=== PATIENT | male | born 1950 | race Caucasian/White ===

== ENCOUNTER → 2023-09-26 | Outpatient (CLI) | payer MEDICARE, SELFPAY ==
--- NOTE | 2023-09-26 08:46 | NEURO ---
NCS and/or EMG Patient Report Ordering Doctor: RANDA VALVERDE DATE OF SERVICE: 09/26/23 Clinical Summary: 73 year old male patient presenting with symptoms of numbness and tingling in both hands. Nerve Conduction Studies Summary: The right median-D2 SNAP distal latency was prolonged. The right ulnar-D5 SNAP distal latency was prolonged. The left median motor conduction velocity was reduced in the forearm segment. Needle Examination Summary: Needle examination demonstrated increased insertional activity and spontaneous activity (positive sharp waves) in the left biceps and triceps muscles. There was a higher proportion of motor unit action potentials with reduced recruitment, increased amplitude, increased duration, and polyphasia in the right deltoid, right biceps, bilateral triceps, and bilateral flexor carpi radialis muscles. Impression: There is electrodiagnostic evidence of the following - 1) Mild, right median mononeuropathy at the wrist (carpal tunnel syndrome), with sensory fiber demyelination 2) Subacute to chronic, right C5/C6 to C7 radiculopathy with active denervation 3) Chronic, left C7 radiculopathy Multi Select Codes Neurology Neurology Interp Codes: 55862-27 Musc test done w/n test comp (interp) (2) and 61292-79 Nrv cndj test 9-10 studies (interp)
== END | disposition home or self-care (01) ==
LOC: PSN 07:15
PROVIDERS: PCP Internal Medicine Infectious Disease; Referring Provider Nurse Practitioner Adult Health; Visit Provider Nurse Practitioner Adult Health
DX: R20.2 Paresthesia of skin (principal)
CPT/HCPCS: 95886; 95911